=== PATIENT | female | born 1950 | race Caucasian/White ===

== ENCOUNTER 2020-11-24 00:32 | Emergency (ER) | payer MEDICARE, SELFPAY ==
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
[2020-11-24 00:44] VITALS: BP 169/87; PULSE 68; RESP 14; TEMP 36.1; O2SAT 98; BMI 24.1
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
[2020-11-24] MEDS: cephALEXin 500 MG CAPSULE PO (01:30)
[2020-11-24] MEDS: Furosemide 20 MG TABLET PO (01:30)
[2020-11-24 01:42] LABS: MANUAL DIFF FLAG NO
[2020-11-24 01:43] LABS: Basophils Absolute Auto 0.1 X10*3/uL (0.0-0.2); Basophils Percent Auto 1.1 % (0-2); Eosinophils Absolute Auto 0.5 X10*3/uL (0.0-0.4); Eosinophils Percent Auto 8.2 % (0-4); Hematocrit 35.7 % (37-47); Imm Gran Abs Auto 0.02 X10*3/uL (0.00-0.03); Imm Gran Pct Auto 0.4 % (0.0-0.4); Lymphocytes Absolute Auto 1.2 X10*3/uL (1.2-4.9); Lymphocytes Percent Auto 21.1 % (20-40); Mean Corpuscular HGB Conc 33.6 g/dl (31.0-35.0); Mean Corpuscular Hemoglobin 30.5 pg (27.0-33.0); Mean Corpuscular Volume 90.6 fL (80-98); Mean Platelet Volume 9.5 fL (9.4-12.3); Monocytes Absolute Auto 0.5 X10*3/uL (0.1-1.2); Monocytes Percent Auto 8.2 % (2-11); Neutrophils Absolute Auto 3.5 X10*3/uL (2.0-8.3); Platelet Count 270 X10*3/uL (160-400); Red Blood Count 3.94 X10*6/uL (4.20-5.50); Red Cell Distribution Width 11.8 % (11.0-16.0); White Blood Count 5.7 X10*3/uL (4.8-10.8)
[2020-11-24 02:02] LABS: Alanine Aminotransferase 11 U/L (0-31); Albumin Level 3.8 g/dL (3.5-5.0); Alkaline Phosphatase 87 U/L (39-117); Anion Gap 12 (12-20); Aspartate Amino Transferase 12 U/L (5-31); Bilirubin Direct 0.2 mg/dL (0.0-0.5); Bilirubin Total 0.5 mg/dL (0.0-1.0); Blood Urea Nitrogen 10 mg/dL (9-16); Calcium 8.9 mg/dL (8.4-10.2); Carbon Dioxide 26 mmol/L (22-29); Chloride 108 mmol/L (96-108); Estimated Glomerular Filt Rate > 60; Glucose Random 107 mg/dL (60-115); Sodium 142 mmol/L (135-145); Total Protein 6.1 g/dL (6.5-8.0)
== END 2020-11-24 02:21 | disposition home or self-care (01) ==
PROVIDERS: Emergency Provider Emergency Medicine; PCP Internal Medicine
DX: L03.116 Cellulitis of left lower limb (principal); R60.0 Localized edema; Z79.899 Other long term (current) drug therapy
CPT/HCPCS: 36415; 80048; 80076; 85025; 93970; 99283; 99284

== ENCOUNTER 2020-11-24 08:04 | Outpatient (REF) | payer BC, MEDICARE, SELFPAY ==
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
== END 2020-11-24 08:05 | disposition home or self-care (01) ==
LOC: HO.US 08:04
PROVIDERS: Visit Provider Emergency Medicine
DX: R60.0 Localized edema (principal)
CPT/HCPCS: 93970

== ENCOUNTER 2020-12-03 17:38 | Emergency (ER) | payer MEDICARE, SELFPAY ==
--- NOTE | ~2020-12-03 | XR_ITS ---
EXAMINATION: XR WRIST, LEFT CLINICAL INFORMATION: Status post cast removal COMPARISON: None available TECHNIQUE: PA, lateral, and oblique views of the left wrist. FINDINGS: Radial fracture fixation plate and screws appears intact. Fracture lucency remains visible with no definite osseous bridging. XR/XR wrist LT min 3V IMPRESSION: Hardware appears intact. No definite osseous bridging of the distal radius fracture.
[2020-12-03 18:08] VITALS: BP 121/47; PULSE 68; RESP 18; O2SAT 98; BMI 22.6
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
--- NOTE | 2020-12-03 20:52 | PC.NURSE ---
PT VOLAR SPLINT IN PLACE CHECKED BY MÓNICA GARCIA.
[2020-12-03] MEDS: Bacitracin Oint 14 GM TUBE 1 APPL TOPICAL (20:55)
== END 2020-12-03 20:52 | disposition home or self-care (01) ==
PROVIDERS: Emergency Provider Emergency Medicine; PCP Internal Medicine
DX: S62.102A Fracture of unspecified carpal bone, left wrist, initial encounter for closed fracture (principal); M25.532 Pain in left wrist; V43.52XA Car driver injured in collision with other type car in traffic accident, initial encounter; Y93.9 Activity, unspecified; Y92.410 Unspecified street and highway as the place of occurrence of the external cause; Y99.9 Unspecified external cause status; Z79.899 Other long term (current) drug therapy
CPT/HCPCS: 29125; 73110; 99283

== ENCOUNTER 2021-03-17 17:54 | Emergency (ER) | payer MEDICARE, SELFPAY ==
[2021-03-17 17:58] VITALS: BP 147/72; PULSE 73; RESP 16; TEMP 37.3; O2SAT 97; BMI 29.0
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
[2021-03-17 18:53] LABS: Appearance Urine CLEAR; Color Urine YELLOW; Glucose Urine UA NEG (NEG); Leukocyte Esterase Urine NEG (NEG); Nitrite Urine NEG (NEG); PH 5.5 (5.0-8.0); UACC Culture Trigger NO; Urine Blood TRACE (NEG); Urine Ketones NEG (NEG); Urine Protein NEG (NEG-TRACE)
[2021-03-17 19:03] LABS: COVID-19 Test Negative (Negative)
[2021-03-17 19:05] LABS: Amphetamine Screen Urine Not Detected (Not Detect); Barbiturates, Urine Not Detected (Not Detect); Benzodiazepines Screen Urine POSITIVE (Not Detect); Cannabinoid Screen Urine Not Detected (Not Detect); Cocaine Screen Urine Not Detected (Not Detect); Fentanyl, urine Not Detected (Not Detect); Opiate Screen Urine Not Detected (Not Detect); Phencyclidine Screen Urine Not Detected (Not Detect)
[2021-03-17 19:14] LABS: Hyaline Casts Urine 0-2 /LPF; Mucus Urine TRACE /LPF; Squamous Epithelial Cell Urine 1+ /LPF; WBC Urine 0-2 /HPF (0-4)
[2021-03-17 19:25] LABS: MANUAL DIFF FLAG NO
[2021-03-17 19:27] LABS: Basophils Absolute Auto 0.1 X10*3/uL (0.0-0.2); Basophils Percent Auto 0.7 % (0-2); Eosinophils Absolute Auto 0.2 X10*3/uL (0.0-0.4); Eosinophils Percent Auto 2.1 % (0-4); Hematocrit 42.5 % (37.0-47.0); Hemoglobin 14.5 g/dl (12.0-16.0); Imm Gran Abs Auto 0.02 X10*3/uL (0.00-0.03); Imm Gran Pct Auto 0.3 % (0.0-0.4); Lymphocytes Absolute Auto 1.8 X10*3/uL (1.2-4.9); Mean Corpuscular HGB Conc 34.1 g/dl (31.0-35.0); Mean Corpuscular Hemoglobin 29.9 pg (27.0-33.0); Mean Corpuscular Volume 87.6 fL (80.0-98.0); Mean Platelet Volume 9.6 fL (9.4-12.3); Monocytes Absolute Auto 0.5 X10*3/uL (0.1-1.2); Monocytes Percent Auto 7.2 % (2-11); Neutrophils Absolute Auto 4.5 x10*3/uL (2.0-8.3); Neutrophils Percent Auto 63.7 % (45-73); Platelet Count 314 X10*3/uL (160-400); Red Blood Count 4.85 X10*6/uL (4.20-5.50); Red Cell Distribution Width 12.2 % (11.0-16.0)
[2021-03-17 19:42] LABS: Ethanol < 10 mg/dL
[2021-03-17 19:44] LABS: Alanine Aminotransferase 13 U/L (0-31); Albumin Level 4.5 g/dL (3.5-5.0); Alkaline Phosphatase 72 U/L (39-117); Anion Gap 14 (12-20); Aspartate Amino Transferase 19 U/L (5-31); Bilirubin Total 0.9 mg/dL (0.0-1.0); Blood Urea Nitrogen 16 mg/dL (9-16); Calcium 10.1 mg/dL (8.4-10.2); Carbon Dioxide 26 mmol/L (22-29); Chloride 104 mmol/L (96-108); Creatinine Clr Calc Pharmacy 44.4; Estimated Glomerular Filt Rate 42; Glucose Random 108 mg/dL (60-115); Potassium 3.8 mmol/L (3.3-5.1); Sodium 140 mmol/L (135-145); Total Protein 7.8 g/dL (6.5-8.0)
[2021-03-17] MEDS: Donepezil HCl 5 MG TABLET PO (21:58)
[2021-03-17] MEDS: diazePAM 5 MG TABLET PO (21:58)
[2021-03-18] MEDS: Levothyroxine Sodium 88 MCG TABLET PO (04:54)
--- NOTE | 2021-03-18 06:37 | PC.NURSE ---
Patient slept well, patient exhibit short term memory impairment, thought process tangential, alert and oriented x 4, patient presents strong dislike toward her daughter Tressa, medication compliant, behavior non-concerning this time, VSS, patient was assessed by care team pending disposition possible case management recommendation, will continue to monitor.
[2021-03-18] MEDS: PARoxetine HCL 10 MG TABLET PO (09:27)
[2021-03-18] MEDS: lisinopriL 2.5 MG TABLET PO (09:27)
[2021-03-18 09:34] VITALS: BP 132/70; PULSE 66; RESP 16; TEMP 37.1; O2SAT 98
--- NOTE | 2021-03-18 12:46 | PC.NURSE ---
pt continually asking this rn about going home, redirectable, calm and cooperative. pt educated about waiting for report on bhn eval and consult w ed provider about plan of care. pt otherwise alert and oriented, conversing and engaging w staff and patients appropriately.
--- NOTE | 2021-03-18 12:59 | MHC.CM.PN ---
Addendum entered by Rema Arriaga 03/18/21 16:26: Pt has formally been cleared by crisis and an order was placed for CM consult. Message left with pt's dtr, Tressa on number listed for call back to discuss d/c plan. Pt does not have a medical need for admission or a skill for STR placement. Pt's payor will not pay for LTC or assisted living. Per review of notes, pt's family has already begun the process of placement and decision making through formal psych evals and legal avenues. Crisis did not deem the pt a risk. Pt should return to home with family support and/or privately hired in home help until they can complete the processes they have already initiated. If this is not feasible, pt can private pay at a facility. CM to wait for daughter's return phone call to discuss pt's options. Original Note: Brief overview of case relayed to CM by Crisis: LTC/STR placement criteria and barriers dicussed including payor considerations, HCP activation etc. Will await formal CM consult after psych clearance before meeting with pt or family.
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
[2021-03-18 15:35] VITALS: BP 103/53; PULSE 64; TEMP 37; O2SAT 99
--- NOTE | 2021-03-18 18:40 | PC.NURSE ---
report taken from alejo mccormack. Client in dayroom interacting with peers and watching tv. pt appears in nad. will continue to monitor
[2021-03-18] MEDS: Donepezil HCl 5 MG TABLET PO (20:36)
[2021-03-18] MEDS: diazePAM 5 MG TABLET PO (20:36)
[2021-03-19 02:07] VITALS: BP 112/66; PULSE 68; RESP 16; TEMP 36.6; O2SAT 97
[2021-03-19] MEDS: Levothyroxine Sodium 88 MCG TABLET PO (05:56)
--- NOTE | 2021-03-19 06:07 | PC.NURSE ---
Patient slept through the night, no distress observed/reported, medication compliant, behavior confused and appropriate, disposition is case management, bed search, VSS, will continue to monitor.
--- NOTE | 2021-03-19 07:40 | PC.NURSE ---
Calm, cooperative, eating breakfast in common area. Chatting with staff and patients. Stead on feet. Skin PWD.
[2021-03-19] MEDS: lisinopriL 2.5 MG TABLET PO (09:19)
[2021-03-19] MEDS: PARoxetine HCL 10 MG TABLET PO (10:11)
--- NOTE | 2021-03-19 10:40 | PC.NURSE ---
Daughter, Melissa from [place], on phone, states that patient has made mult threats to other daughter on phone and also talked about walking into traffic . Asking that Case Management call Tressa today with update. Pt speaking with daughter Melissa on phone,.
--- NOTE | 2021-03-19 13:29 | PC.NURSE ---
Carrol holliday in ED to touch base about patient's plan. Will call daughters to discuss plan of care. Melissa, daughter in [place] tel is [phone]
[2021-03-19 14:00] VITALS: BP 122/60; PULSE 69; TEMP 36.9; O2SAT 98
--- NOTE | 2021-03-19 15:13 | PC.NURSE ---
being seen by Case Management at this time.
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
[2021-03-19] MEDS: Donepezil HCl 5 MG TABLET PO (20:52)
[2021-03-20 01:56] VITALS: BP 144/68; PULSE 55; RESP 16; TEMP 36.3; O2SAT 99
[2021-03-20] MEDS: Levothyroxine Sodium 88 MCG TABLET PO (05:05)
--- NOTE | 2021-03-20 05:05 | PC.NURSE ---
Patient slept well, no distress observed/reported, behavior confused but non concerning at this time, medication compliant, psych consult ordered/[facility] made aware, case management pending capacity evaluation, VSS, will continue to monitor.
[2021-03-20 06:51] VITALS: BMI 22.6
--- NOTE | 2021-03-20 07:16 | PC.NURSE ---
patient awake at beginning of shift meandering around unit with similar age patient appears in no distress.
[2021-03-20 07:57] VITALS: BP 109/57; PULSE 60; RESP 13; TEMP 36.4; O2SAT 99
[2021-03-20] MEDS: PARoxetine HCL 10 MG TABLET PO (09:55)
[2021-03-20] MEDS: lisinopriL 2.5 MG TABLET PO (09:55)
--- NOTE | 2021-03-20 10:19 | MHC.CM.ED ---
Addendum entered by Jil Ghtora 03/20/21 13:40: Dr Holloway will be seeing patient today. Original Note: Patient remains in ER. Received notification from Mitzi of Care Team that patient did not need inpatient psych and was a case management consult. Originally psych consult was going to be ordered was Care team decided against it. Per Mitzi, patient's daughter/HCP, Tressa aware patient will not be admitted to psych. T/W spoke with patient's daughter/HCP, Tressa, via telephone at [phone]. Tressa stated she was not aware patient would not be admitted to psych. Tressa inquired about reasoning why. T/W explained patient was continuing to deny SI/HI and visual auditory hallucinations. Tressa does not feel patient can safely go home. She is in the process of filing emergency guardianship with the help of a drapery examiner for her mom. She is not sure when the court date will be but per the multi purpose machine operator, can take about 2 weeks. T/W explained that LTC or assisted living would have to be privately paid. Tressa verbalized understanding and verified patient has a savings account available to privately pay for care. T/W also explained psych consult was ordered to determine in patient has the capacity to make her own medical decisions. Tressa upset that consult hasn't been done yet when she was told Saturday and Saturday that psych consult would be ordered. T/W verified psych consult for capacity was ordered and called [facility] to verify they received the order. Tressa aware. Continue to monitor for d/c needs.
--- NOTE | 2021-03-20 14:28 | PC.NURSE ---
DR. Holloway in to speak with patient at this time.
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
--- NOTE | 2021-03-20 15:43 | MHC.CM.ED ---
Patient seen by Dr Holloway. Patient found not to have the capacity to make her own decisions. HCP is invoked. T/W spoke with patient's daughter/HCP, Tressa, via telephone at [phone]. Tressa is hoping to have patient placed in Assisted Living at [facility] or [facility]. Tressa agreeable to T/W reaching out to these facilities. At [facility], left message for Mercedes to return telephone call. At [facility], spoke with Sen, who will call Tressa to discuss patient. Tressa is aware that patient may need to go to a [facility] facility under private pay, if there is not an assisted living room available. Continue to monitor for d/c needs.
[2021-03-20] MEDS: Donepezil HCl 5 MG TABLET PO (21:47)
[2021-03-20] MEDS: diazePAM 5 MG TABLET PO (21:47)
[2021-03-21 03:00] VITALS: BP 169/72; PULSE 58; RESP 16; TEMP 36.9; O2SAT 100
--- NOTE | 2021-03-21 05:38 | PC.NURSE ---
Patient slept through the night, no distress observed/reported, behavior appropriate and confused, medication compliant, Case Management and family coordinating placement. HCP invoked, VS at baseline, will continue to monitor.
[2021-03-21] MEDS: Levothyroxine Sodium 88 MCG TABLET PO (06:11)
--- NOTE | 2021-03-21 07:21 | PC.NURSE ---
patient appears to remain asleep at present respirations are even and unlabored patient appears in no distress
[2021-03-21 07:50] VITALS: BP 138/69; PULSE 64; RESP 13; TEMP 36.4; O2SAT 98
--- NOTE | 2021-03-21 08:13 | PC.NURSE ---
client stands at the front of the nurses station repeatedly asking about discharge, i have informed client i do not have information about her discharge
--- NOTE | 2021-03-21 08:25 | PC.NURSE ---
client continues to stand at front of nurses station and repeats she wants to go home. in speaking to security she infers she may not go home im not going to eat or drink and i wont take meds t/w told her i didnt think it would be a fantastic idea, patient reiterates she wants to go home.
--- NOTE | 2021-03-21 09:13 | MHC.CM.ED ---
Addendum entered by Jil Ghotra 03/21/21 13:02: SABRINA Cuevas requesting physician clearance form be completed. Can be completed by a mid-level. Form completed and signed by Silvia SALES. Per Faith, patient's prescriptions will have to be scheduled, not PRN. Faith is still waiting to hear from the buioding and patient's daughter. Anticipate patient will be able to d/c to [facility] on 03/22 as long as all necessary forms (building, consent of care, etc) are completed. Addendum entered by Jil Ghotra 03/21/21 11:05: SABRINA Cuevas will speak with building and daughter. Original Note: Patient remains in ER. On 03/20, HCP invoked. SABRINA Cuevas from [facility] on site for visit with patient. Continue to monitor for d/c needs.
[2021-03-21] MEDS: diazePAM 5 MG TABLET PO ×2 (12:44→21:25)
[2021-03-21] MEDS: Donepezil HCl 5 MG TABLET PO (21:25)
--- NOTE | 2021-03-22 06:22 | PC.NURSE ---
Patient slept through the night, no distress observed/reported, behavior appropriate and confusion at baseline, medication compliant, Case Management and family coordinating placement. HCP invoked, VS at baseline, will continue to monitor.
[2021-03-22 06:37] VITALS: BP 141/79; PULSE 62; RESP 17; TEMP 36.7; O2SAT 99
[2021-03-22] MEDS: Levothyroxine Sodium 88 MCG TABLET PO (06:38)
--- NOTE | 2021-03-22 07:20 | PC.NURSE ---
patient was awake upon t/w's arrival to unit freq making comments regarding unit temperature (its 18 degrees outside) asking for coffee and sweeteners otherwise appears in no distress
[2021-03-22] MEDS: SUMAtriptan succinate 25 MG TABLET PO (09:25)
[2021-03-22] MEDS: PARoxetine HCL 10 MG TABLET PO (09:59)
[2021-03-22] MEDS: lisinopriL 2.5 MG TABLET PO (09:59)
--- NOTE | 2021-03-22 12:13 | MHC.CM.ED ---
Patient remains in ER. Received telephone call from patient's daughter/HCP, Tressa, requesting additional psych consult for medication recommendations to help with anxiety. Dominic SALES aware. Continue to monitor for d/c needs.
--- NOTE | 2021-03-22 16:21 | P.CNPS_ITS ---
History of Present Illness Date of Service: 03/22 Chief Complaint: crisis, hi and paranoia sec 12 Reason for Consult: med recs HPI Narrative: see previous psychiatry consult. interval update provided by carrie, indicates no substantial change in Sx. Past Psychiatric History: anxiety, takes paxil and valium. denies other. Diagnostics Vital Signs (24Hr): Vital Signs - 24 hr 03/22/21 06:37 Temperature 98.0 F Pulse Rate 62 Respiratory Rate 17 Blood Pressure 141/79 H Pulse Oximetry 99 BMI result Verdana 4 Body Mass Index Verdana 4 22.6 Verdana 4 Verdana 4 Labs Results: 03/17/21 19:18 03/17/21 19:18 Medications Medications Current Medications Diazepam (Diazepam 5 Mg Tablet) 5 mg PO BID [facility] Last Admin: 03/22/21 13:35 Dose: Not Given Documented by: Donepezil HCl (Donepezil Hcl 5 Mg Tablet) 5 mg PO BEDTIME [facility] Last Admin: 03/21/21 21:25 Dose: 5 mg Documented by: Haloperidol (Haloperidol 1 Mg Tablet) 2 mg PO BEDTIME [facility] Levothyroxine Sodium (Levothyroxine Sodium 88 Mcg Tablet) 88 mcg PO DAILY@0600 [facility] Last Admin: 03/22/21 06:38 Dose: 88 mcg Documented by: Lisinopril (Lisinopril 2.5 Mg Tablet) 2.5 mg PO DAILY [facility]; Protocol Last Admin: 03/22/21 09:59 Dose: 2.5 mg Documented by: Paroxetine HCl (Paroxetine Hcl 10 Mg Tablet) 10 mg PO DAILY [facility] Last Admin: 03/22/21 09:59 Dose: 10 mg Documented by: Allergies Allergies Allergy/AdvReac Type Severity Reaction Status Date / Time Sulfa (Sulfonamide Allergy Unknown Unknown Verified 11/24/20 00:44 Antibiotics) Assessment & Plan Assessment & Plan (1) Alzheimer disease: Status: Acute Code(s): G30.9 - Alzheimer's disease, unspecified; F02.80 - Dementia in other diseases classified elsewhere without behavioral disturbance (2) Paranoia: Status: Acute Code(s): F22 - Delusional disorders Assessment and Plan: continue paxil and valium for anxiety. add haldol 2 mg at HS to start for paranoia/agitation associated with paranoid delusions. also 0.5 mg haldol available Q6H PRN agitation. Plan as above. pending placement in [facility]. I spent minutes with the patient and/or on the patient floor today, greater than?50% of which was spent counseling/coordinating care.
[2021-03-22] MEDS: Ibuprofen 600 MG TABLET PO (17:19)
[2021-03-22 19:28] VITALS: BP 116/63; PULSE 53; RESP 16; TEMP 37.1; O2SAT 98
[2021-03-22] MEDS: Donepezil HCl 5 MG TABLET PO (21:39)
[2021-03-22] MEDS: diazePAM 5 MG TABLET PO (21:39)
[2021-03-22] MEDS: HaloperidoL 1 MG TABLET 2 MG PO (21:40)
[2021-03-22 23:24] VITALS: BP 140/78; PULSE 75; RESP 16; TEMP 36.4; O2SAT 96
[2021-03-23 02:26] VITALS: BP 140/78; PULSE 117; RESP 16; TEMP 36.4; O2SAT 96
[2021-03-23] MEDS: Levothyroxine Sodium 88 MCG TABLET PO ×2 (06:46→09:51)
--- NOTE | 2021-03-23 06:55 | PC.NURSE ---
Patient slept through the night, no distress observed/reported, behavior appropriate and confusion at baseline, medication compliant, Positive effect from Haldol 2 mg introduced yesterday, Case Management and family coordinating placement. HCP invoked, VS at baseline, will continue to monitor
[2021-03-23] MEDS: HaloperidoL 0.5 MG TABLET PO ×3 (07:43→13:54)
[2021-03-23] MEDS: diazePAM 5 MG TABLET PO ×2 (09:50→21:15)
[2021-03-23] MEDS: PARoxetine HCL 10 MG TABLET PO (09:50)
[2021-03-23] MEDS: lisinopriL 2.5 MG TABLET PO (09:50)
--- NOTE | 2021-03-23 13:44 | MHC.CM.ED ---
Spoke with Matt at [facility]. They have been waiting for the daughter to call to sign paperwork. Bette/Earnest spoke with Tressa via telephone at [phone] with Reema Ward. Explaiend to Tressa that patient does not qualify for inpatient psych. Tressa verbalized understanding. Tressa is waiting for [facility] to contact her. Bette/Earnest spoke with Faith at [facility]. She will reach out to Tressa. Facility will need all of the patient's medications in the building before they accept her. They will also need the consent forms signed. Tressa will also need to connect with [facility] to get patient's prescriptions transferred. They can be reached via telephone at [phone]. Continue to monitor for d/c needs.
--- NOTE | 2021-03-23 14:18 | PC.NURSE ---
PT HAS PERIODS OF AGITATION STATES SHE IS GOING TO CALL ATTY WALK OUT, HAS MADE SEVERAL CALLS TO HER DAUGHTERS IN THE AM, DAUGHTER CALLED ASKING IF WE COULD LIMIT PTS PHONE ACTIVITY. PT IS IN THE SAME STATE SHE WAS IN WITH AGITATION THIS AM STATING SHE WANTS TO LEAVE AMA, WANTS TO KNOW WHY SHE IS HERE SHE'S DONE NOTHING WRONG. PT HAS BEEN EDUCATED SEVERAL TIMES ON WHY SHE IS HERE. PT HAS ASKED TO SPEAK WITH VICE PRESIDENT CORPORATE COMMUNICATIONS (DIANA TIM)
[2021-03-23 17:26] VITALS: BP 130/65; PULSE 58; TEMP 37; O2SAT 98
[2021-03-23] MEDS: Donepezil HCl 5 MG TABLET PO (21:15)
[2021-03-23] MEDS: HaloperidoL 1 MG TABLET 2 MG PO (21:15)
[2021-03-24 01:47] VITALS: BP 143/75; PULSE 77; RESP 20; TEMP 36.6; O2SAT 99
[2021-03-24] MEDS: Levothyroxine Sodium 88 MCG TABLET PO ×2 (05:39)
--- NOTE | 2021-03-24 05:40 | PC.NURSE ---
Patient slept through the night, no distress observed/reported, mood pleasant, medication compliant, VSS, behavior pleasant, patient will be discharged today to [facility], case management and daughter Tressa who is patient's healthcare proxy coordinating d/c, VSS, will continue to monitor.
--- NOTE | 2021-03-24 07:10 | PC.NURSE ---
patient awake upon t/w's Arrival to unit, asking for food items and asking about details of todays planned dc. Pleasant and overall approriate bx at this time.
--- NOTE | 2021-03-24 08:18 | PC.NURSE ---
patient ambulating ad rory stating she will sabotage admission today i should just run around naked so they'll think im demetrazy asking for sons phone number and phone for receiving facility.
[2021-03-24] MEDS: diazePAM 5 MG TABLET PO ×2 (09:12→21:42)
--- NOTE | 2021-03-24 09:50 | MHC.CM.ED ---
Patient remains in ER. Spoke with Faith at [facility]. They anticipate patient will transfer to their facility on Saturday, 03/28 as long as they have the necessary paperwork completed for the patient. The physician clearance form that was completed by the ER PA needs to be completed by the patient's PCP. Tressa needs to get patient's medications switched to [facility] bubble packs. And [facility] needs a copy of patient's power of associate attorney. T/W received a copy of the POA from Tressa via email this morning. This was forwarded to Faith at [facility]. T/W emailed Tressa with the above information. Also included a current list of patient's medications. T/W also faxed a copy of physican clearance form to PCP's office with current clinical information and medication list. Tressa is aware that she will need to follow up with the PCP's office for this. Continue to monitor for d/c needs.
[2021-03-24] MEDS: HaloperidoL 0.5 MG TABLET PO (14:57)
[2021-03-24 18:26] VITALS: BP 149/70; PULSE 60; TEMP 36.8; O2SAT 99
[2021-03-24] MEDS: HaloperidoL 1 MG TABLET 2.5 MG PO (21:41)
[2021-03-24] MEDS: Donepezil HCl 5 MG TABLET PO (21:57)
--- NOTE | 2021-03-25 06:14 | PC.NURSE ---
Patient slept through the night, no distress observed/reported, behavior pleasant confusion at baseline, tentative day to d/c to [facility] is on 03/28/21, daughter Tressa and case management coordinating placement, medication compliant, will continue to monitor.
[2021-03-25 06:42] VITALS: BP 129/60; PULSE 54; RESP 16; TEMP 36.5; O2SAT 95
[2021-03-25] MEDS: Levothyroxine Sodium 88 MCG TABLET PO (06:53)
--- NOTE | 2021-03-25 07:03 | PC.NURSE ---
patient appears to remain asleep respirations are even and unlabored patioent appears in no distress
[2021-03-25 09:11] VITALS: RESP 18
[2021-03-25 09:39] VITALS: BP 143/63; PULSE 56; TEMP 35.3; O2SAT 97
[2021-03-25] MEDS: lisinopriL 2.5 MG TABLET PO (09:39)
[2021-03-25] MEDS: diazePAM 5 MG TABLET PO ×2 (09:39→20:19)
[2021-03-25] MEDS: PARoxetine HCL 10 MG TABLET PO (09:40)
[2021-03-25] MEDS: Donepezil HCl 5 MG TABLET PO (20:19)
[2021-03-25] MEDS: HaloperidoL 1 MG TABLET 2.5 MG PO (20:20)
--- NOTE | 2021-03-25 20:42 | PC.NURSE ---
Patient took all hs medication without difficulty aware of plan to go to [facility] on saturday no s/s of discomfort will continue to monitor.
[2021-03-25 23:51] VITALS: BP 132/60; PULSE 59; RESP 18; TEMP 36.8; O2SAT 96
[2021-03-26] MEDS: Levothyroxine Sodium 88 MCG TABLET PO (06:10)
--- NOTE | 2021-03-26 07:40 | PC.NURSE ---
patient appears to remain asleep respirations are even and unlabored patient appears in no distress
[2021-03-26 09:49] VITALS: BP 136/61; PULSE 63; TEMP 35.3; O2SAT 97
--- NOTE | 2021-03-26 10:36 | PC.NURSE ---
patient expresses dont want to go to the [facility], i want to go home, my memory is fine declined medications.
--- NOTE | 2021-03-26 14:14 | PC.NURSE ---
patient reports wants to go home , patient asking to speak with case management about saturday discharge home.
--- NOTE | 2021-03-26 14:56 | MHC.CARE ---
Security came and obtained Pt's purse and [place] and provided them to the Power of Pole Peeling Machine Operator Helper,
[2021-03-26 20:02] VITALS: BP 138/58; PULSE 65; RESP 18; TEMP 37; O2SAT 96
[2021-03-26] MEDS: Donepezil HCl 5 MG TABLET PO (20:38)
[2021-03-26] MEDS: HaloperidoL 1 MG TABLET 2.5 MG PO (20:39)
[2021-03-26 23:47] VITALS: BP 152/73; PULSE 69; RESP 17; TEMP 36.7; O2SAT 95
[2021-03-27] MEDS: Levothyroxine Sodium 88 MCG TABLET PO (06:40)
--- NOTE | 2021-03-27 06:54 | PC.NURSE ---
Patient slept through the night, no distress observed/reported, behavior non concerning, medication compliant, Pending admission to [facility], will continue to monitor.
[2021-03-27 07:34] VITALS: BP 138/71; PULSE 63; RESP 16; O2SAT 100
--- NOTE | 2021-03-27 07:48 | PC.NURSE ---
Pt received from shift leader: Pt AOX2-3 with intermittent confusion. Heart sounds normal and lungs clear. Pt abd soft and non-tender. Pending transport to [facility].
[2021-03-27 09:28] VITALS: BP 156/77; PULSE 56; RESP 17; O2SAT 100
[2021-03-27] MEDS: lisinopriL 2.5 MG TABLET PO (09:30)
--- NOTE | 2021-03-27 12:23 | MHC.CM.ED ---
Patient remains in ER. Received telephone call from Faith at [facility]. Patient can leave on 03/28 at 2pm. [facility] booked. [facility] with chart. Updated medication list faxed to Faith at [facility]. Patient's prescriptions will have to transferred to [facility]. List of current medication provided to Dr Jacobo so those prescriptions can be sent today. Continue to monitor for d/c needs.
[2021-03-27 19:07] VITALS: BP 197/67; PULSE 67; RESP 18; TEMP 37.1; O2SAT 99
[2021-03-27] MEDS: PARoxetine HCL 10 MG TABLET PO (19:07)
[2021-03-27] MEDS: HaloperidoL 1 MG TABLET 2.5 MG PO (19:59)
[2021-03-27] MEDS: Donepezil HCl 5 MG TABLET PO (19:59)
[2021-03-27 23:24] VITALS: BP 139/70; PULSE 67; RESP 18; TEMP 36.4; O2SAT 96
[2021-03-28] MEDS: HaloperidoL 0.5 MG TABLET PO ×2 (00:25→11:31)
--- NOTE | 2021-03-28 05:53 | PC.NURSE ---
Patient slept through the night, no distress observed/reported, behavior non concerning, medication compliant, D/C today at 2 pm TUSHAR Chowdary, will continue to monitor.
[2021-03-28] MEDS: Levothyroxine Sodium 88 MCG TABLET PO (06:25)
--- NOTE | 2021-03-28 07:24 | PC.NURSE ---
patient appears to be asleep at present, respirations are even and unlabored, patient appears in no distress.
[2021-03-28 08:05] VITALS: BP 138/64; PULSE 62; RESP 12; TEMP 36.6; O2SAT 98
--- NOTE | 2021-03-28 08:59 | MHC.CM.ED ---
Patient will be transferring to [facility] today at 2pm. [facility] booked. Attempted to notify patient. Patient currently sleeping. Left voicemail for patient's daughter/HCP, via telephone at [phone] with discharge information. Chloe PERRY and MÓNICA Alfaro aware. Continue to monitor for d/c needs.
--- NOTE | 2021-03-28 09:19 | PC.NURSE ---
t/w observed clients valium had been dc'ed, relayed information to pharmacy to assure that this change was not an error.
[2021-03-28] MEDS: PARoxetine HCL 10 MG TABLET PO (11:31)
[2021-03-28] MEDS: lisinopriL 2.5 MG TABLET PO (11:31)
--- NOTE | 2021-03-28 11:34 | PC.NURSE ---
@1122 [facility] CALLS TO SAY THEY HAVE AN A TRUCK FOR A NOON TILE TRIMMER
== END 2021-03-28 14:32 ==
PROVIDERS: Physician Assistant; Emergency Provider Emergency Medicine Emergency Medical Services; PCP Internal Medicine
DX: F32.A Depression, unspecified (principal); F41.9 Anxiety disorder, unspecified; F22 Delusional disorders; R45.850 Homicidal ideations; Z20.822 Contact with and (suspected) exposure to COVID-19; G30.9 Alzheimer's disease, unspecified; F02.80 Dementia in other diseases classified elsewhere, unspecified severity, without behavioral disturbance, psychotic disturbance, mood disturbance, and anxiety; Z79.899 Other long term (current) drug therapy
CPT/HCPCS: 80053; 80307; 81001; 82077; 85025; 87635; 99285

== ENCOUNTER 2021-05-08 17:25 | Emergency (ER) | payer MEDICARE, SELFPAY ==
--- NOTE | 2021-05-08 17:43 | ED_ITS ---
HPI - General Adult General Chief complaint: General Medical Stated complaint: INC WEAK,DIFF AMB,NOT EATING PER ASSIST [facility]ON STAFF Time Seen by Provider: 05/08/21 17:41 Source: EMS Mode of arrival: EMS History of Present Illness HPI narrative: Patient with history of dementia came from assisted living place for not eating for last few days patient has been more weak and difficulty in ambulation no fever no shortness of breath no recent fall patient denies any complaints Related Data Home Medications Medication Instructions Recorded Confirmed levothyroxine 88 mcg tablet 1 tab PO DAILY 03/17/21 05/09/21 paroxetine HCl 10 mg tablet 1 tab PO DAILY 03/17/21 05/08/21 acetaminophen 500 mg tablet 1 tab PO Q6H PRN 05/09/21 05/09/21 Previous Rx's Medication Instructions Recorded donepezil 5 mg tablet (Aricept) 5 mg PO BEDTIME #30 tab 03/27/21 haloperidol 0.5 mg tablet 0.5 mg PO BID #60 tab 03/27/21 haloperidol 5 mg tablet 2.5 mg PO BEDTIME 30 Days #15 tab 03/27/21 lisinopril 2.5 mg tablet 2.5 mg PO DAILY #30 tab 03/27/21 Allergies Allergy/AdvReac Type Severity Reaction Status Date / Time Sulfa (Sulfonamide Allergy Unknown Unknown Verified 11/24/20 00:44 Antibiotics) Review of Systems Review of Systems: Yes all other systems are reviewed and are negative [facility] Social History Social History Advance Directives: Yes Advance Directives on File: Yes Advance Directives Date on File: 03/20/21 Healthcare Proxy: No (Invoked) Guardian: Yes Physical Exam ED Vital Signs: Vital Signs - 24 hr 05/08/21 17:51 05/08/21 20:28 05/09/21 00:00 Temperature 98.3 F 98.7 F 98.6 F Pulse Rate 76 69 Respiratory Rate 18 16 16 Blood Pressure 143/91 H 130/70 155/79 H Pulse Oximetry 97 97 BMI result Body Mass Index 24.9 Appearance: Alert. Oriented X3. No acute distress. Eyes: PERRLA, No Nystagmus ENT: Pharynx normal. Oral Mucosa moist Neck: Normal inspection. Neck supple. CVS: Normal heart rate and rhythm. Pulses normal. Respiratory: No respiratory distress. Equal air entry bilateral, no wheezing/rales/rhonchi Abdomen: Soft and nontender. Bowel sounds are present, no mass palpable, no CVA tenderness Skin: Skin warm and dry. Normal skin color. Normal skin turgor. Extremities: No lower extremity edema. No calf tenderness Neuro: Oriented X 3. No motor deficit. No sensory deficit.No cerebellar signs , cranial nerves II-XII intact Medical Decision Making MDM Narrative Medical decision making narrative: Patient with dementia with anxiety not eating or drinking for last few days not able to take care of herself medically cleared spoke to patient's daughter Melissa at [phone] says that staff told her that patient needs medications adjustment. Care team was consulted, plan to have a discussion in the morning with family Lab Data Lab results reviewed: Yes I reviewed the patient's lab results. Result diagrams: 05/08/21 18:38 05/08/21 18:37 Labs: Lab Results 05/08/21 05/08/21 05/08/21 Range/Units 18:37 18:38 20:23 WBC 6.7 (4.8-10.8) X10*3/uL RBC 5.20 (4.20-5.50) X10*6/uL Hgb 15.5 (12.0-16.0) g/dl Hct 45.9 (37.0-47.0) % MCV 88.3 (80.0-98.0) fL MCH 29.8 (27.0-33.0) pg MCHC 33.8 (31.0-35.0) g/dl RDW 11.7 (11.0-16.0) % Plt Count 327 (160-400) X10*3/uL MPV 10.6 (9.4-12.3) fL Immature Gran % (Auto) 0.4 (0.0-0.4) % Neut % (Auto) 66.4 (45-73) % Lymph % (Auto) 22.5 (20-40) % [place] % (Auto) 8.2 (2-11) % Eos % (Auto) 2.1 (0-4) % Baso % (Auto) 0.4 (0-2) % Lymph # (Auto) 1.5 (1.2-4.9) X10*3/uL [place] # (Auto) 0.6 (0.1-1.2) X10*3/uL Eos # (Auto) 0.1 (0.0-0.4) X10*3/uL Baso # (Auto) 0.0 (0.0-0.2) X10*3/uL Abs Immat Gran (auto) 0.03 (0.00-0.03) X10*3/uL Absolute Neuts (auto) 4.4 (2.0-8.3) x10*3/uL Absolute Nucleated RBC 0.000 (0.0-0.012) X10*3/uL Nucleated RBC % (auto) 0.0 (0.0-0.2) /100WBC Sodium 137 (135-145) mmol/L Potassium 4.3 (3.3-5.1) mmol/L Chloride 97 (96-108) mmol/L Carbon Dioxide 28 (22-29) mmol/L Anion Gap 16 (12-20) BUN 16 (9-16) mg/dL Creatinine 0.90 (0.5-1.4) mg/dL Estim Creat Clear Calc 52.3 Estimated GFR > 60 Random Glucose 132 H (60-115) mg/dL Calcium 9.7 (8.4-10.2) mg/dL Total Bilirubin 0.8 (0.0-1.0) mg/dL AST 31 D (5-31) U/L ALT 23 (0-31) U/L Alkaline Phosphatase 39 D (39-117) U/L Total Protein 6.9 (6.5-8.0) g/dL Albumin 4.0 (3.5-5.0) g/dL Urine Color Urine Appearance Urine pH (5.0-8.0) Ur Specific [place] (1.005-1.025) Urine Protein (NEG-TRACE) MG/DL Urine Glucose (UA) (NEG) MG/DL Urine Ketones (NEG) MG/DL Urine Blood (NEG) Urine Nitrite (NEG) Ur Leukocyte Esterase (NEG) Urine RBC (0) /HPF Urine WBC (0-4) /HPF Ur Squamous Epith Cells /LPF Talc Crystals /LPF Urine Bacteria /LPF Urine Mucus /LPF COVID-19 ([facility]) Negative (Negative) COVID-19 Clin Com See Note 05/08/21 Range/Units 20:23 WBC (4.8-10.8) X10*3/uL RBC (4.20-5.50) X10*6/uL Hgb (12.0-16.0) g/dl Hct (37.0-47.0) % MCV (80.0-98.0) fL MCH (27.0-33.0) pg MCHC (31.0-35.0) g/dl RDW (11.0-16.0) % Plt Count (160-400) X10*3/uL MPV (9.4-12.3) fL Immature Gran % (Auto) (0.0-0.4) % Neut % (Auto) (45-73) % Lymph % (Auto) (20-40) % [place] % (Auto) (2-11) % Eos % (Auto) (0-4) % Baso % (Auto) (0-2) % Lymph # (Auto) (1.2-4.9) X10*3/uL [place] # (Auto) (0.1-1.2) X10*3/uL Eos # (Auto) (0.0-0.4) X10*3/uL Baso # (Auto) (0.0-0.2) X10*3/uL Abs Immat Gran (auto) (0.00-0.03) X10*3/uL Absolute Neuts (auto) (2.0-8.3) x10*3/uL Absolute Nucleated RBC (0.0-0.012) X10*3/uL Nucleated RBC % (auto) (0.0-0.2) /100WBC Sodium (135-145) mmol/L Potassium (3.3-5.1) mmol/L Chloride (96-108) mmol/L Carbon Dioxide (22-29) mmol/L Anion Gap (12-20) BUN (9-16) mg/dL Creatinine (0.5-1.4) mg/dL Estim Creat Clear Calc Estimated GFR Random Glucose (60-115) mg/dL Calcium (8.4-10.2) mg/dL Total Bilirubin (0.0-1.0) mg/dL AST (5-31) U/L ALT (0-31) U/L Alkaline Phosphatase (39-117) U/L Total Protein (6.5-8.0) g/dL Albumin (3.5-5.0) g/dL Urine Color YELLOW Urine Appearance CLEAR Urine pH 6.0 (5.0-8.0) Ur Specific [place] 1.025 (1.005-1.025) Urine Protein TRACE (NEG-TRACE) MG/DL Urine Glucose (UA) NEG (NEG) MG/DL Urine Ketones 15 (NEG) MG/DL Urine Blood NEG (NEG) Urine Nitrite NEG (NEG) Ur Leukocyte Esterase 1+ H (NEG) Urine RBC 0 (0) /HPF Urine WBC 1-4 (0-4) /HPF Ur Squamous Epith Cells 1+ /LPF Talc Crystals TRACE /LPF Urine Bacteria 1+ /LPF Urine Mucus 1+ /LPF COVID-19 ([facility]) (Negative) COVID-19 Clin Com Discharge Plan Discharge Clinical Impression: Dementia, Anxiety, Adult failure to thrive Prescriptions: No Action paroxetine HCl 10 mg tablet 1 tab PO DAILY 0RF levothyroxine 88 mcg tablet 1 tab PO DAILY 0RF donepezil [Aricept] 5 mg tablet 5 mg PO BEDTIME Qty: 30 0RF haloperidol 0.5 mg tablet 0.5 mg PO BID Qty: 60 0RF haloperidol 5 mg tablet 2.5 mg PO BEDTIME 30 Days Qty: 15 0RF lisinopril 2.5 mg tablet 2.5 mg PO DAILY Qty: 30 0RF acetaminophen 500 mg tablet 1 tab PO Q6H PRN (Reason: Pain) 0RF
[2021-05-08 17:51] VITALS: BP 143/91; PULSE 76; RESP 18; TEMP 36.8; O2SAT 97; BMI 24.9
[2021-05-08] MEDS: 0.9 % Sodium Chloride 1,000 ML 999 ML IV (18:43)
[2021-05-08 18:46] LABS: MANUAL DIFF FLAG NO
[2021-05-08 19:06] LABS: Alanine Aminotransferase 23 U/L (0-31); Alkaline Phosphatase 39 U/L (39-117); Anion Gap 16 (12-20); Aspartate Amino Transferase 31 U/L (5-31); Bilirubin Total 0.8 mg/dL (0.0-1.0); Blood Urea Nitrogen 16 mg/dL (9-16); Calcium 9.7 mg/dL (8.4-10.2); Carbon Dioxide 28 mmol/L (22-29); Chloride 97 mmol/L (96-108); Creatinine Clr Calc Pharmacy 52.3; Estimated Glomerular Filt Rate > 60; Glucose Random 132 mg/dL (60-115); Potassium 4.3 mmol/L (3.3-5.1); Sodium 137 mmol/L (135-145); Total Protein 6.9 g/dL (6.5-8.0)
[2021-05-08 19:07] LABS: Basophils Percent Auto 0.4 % (0-2); Eosinophils Absolute Auto 0.1 X10*3/uL (0.0-0.4); Eosinophils Percent Auto 2.1 % (0-4); Hematocrit 45.9 % (37.0-47.0); Hemoglobin 15.5 g/dl (12.0-16.0); Imm Gran Abs Auto 0.03 X10*3/uL (0.00-0.03); Imm Gran Pct Auto 0.4 % (0.0-0.4); Lymphocytes Absolute Auto 1.5 X10*3/uL (1.2-4.9); Lymphocytes Percent Auto 22.5 % (20-40); Mean Corpuscular HGB Conc 33.8 g/dl (31.0-35.0); Mean Corpuscular Hemoglobin 29.8 pg (27.0-33.0); Mean Corpuscular Volume 88.3 fL (80.0-98.0); Mean Platelet Volume 10.6 fL (9.4-12.3); Monocytes Absolute Auto 0.6 X10*3/uL (0.1-1.2); Monocytes Percent Auto 8.2 % (2-11); Neutrophils Absolute Auto 4.4 x10*3/uL (2.0-8.3); Neutrophils Percent Auto 66.4 % (45-73); Platelet Count 327 X10*3/uL (160-400); Red Cell Distribution Width 11.7 % (11.0-16.0); White Blood Count 6.7 X10*3/uL (4.8-10.8)
[2021-05-08 20:28] VITALS: BP 130/70; PULSE 69; RESP 16; TEMP 37.1; O2SAT 97
[2021-05-08 20:31] LABS: Appearance Urine CLEAR; Color Urine YELLOW; Glucose Urine UA NEG (NEG); Leukocyte Esterase Urine 1+ (NEG); Nitrite Urine NEG (NEG); Specific Gravity - Urine 1.025 (1.005-1.025); UACC Culture Trigger YES; Urine Blood NEG (NEG); Urine Ketones 15 MG/DL (NEG); Urine Protein TRACE MG/DL (NEG-TRACE)
[2021-05-08 20:40] LABS: Bacteria Urine 1+ /LPF; Mucus Urine 1+ /LPF; RBC Urine 0 /HPF (0); Squamous Epithelial Cell Urine 1+ /LPF; Urine Talc Crystals TRACE /LPF
[2021-05-08 20:42] LABS: COVID-19 Test Negative (Negative)
[2021-05-09] VITALS (8 sets, daily range): BP systolic 117–155; BP diastolic 54–79; PULSE 52–100; RESP 14–16; TEMP 36.4–37; O2SAT 95–98
[2021-05-09] MEDS: LORazepam 1 MG TABLET PO (00:22)
--- NOTE | 2021-05-09 09:30 | PC.NURSE ---
pt is constantly getting oob and amb (i) gait steady in room and requesting to go to the bathroom. pt amb (i) gait steady with contact guard to bathroom and btb without any issues.
[2021-05-09] MEDS: Levothyroxine Sodium 88 MCG TABLET PO (10:22)
[2021-05-09] MEDS: lisinopriL 2.5 MG TABLET PO (10:22)
[2021-05-09] MEDS: HaloperidoL 0.5 MG TABLET PO ×2 (10:22→20:30)
[2021-05-09] MEDS: PARoxetine HCL 10 MG TABLET PO (10:22)
[2021-05-09 11:34] LABS: TSH reflex Free T4 0.95 uIU/mL (0.32-4.0)
--- NOTE | 2021-05-09 13:36 | MHC.CM.ED ---
Received case management consult from Alicia SALES. Patient came to the ER due to weakness, difficulty ambulating, and not eating. Patient was cleared by the care team of needing inpatient psych. Patient was able to ambulate around the ER without an issue. Patient's daughter & [facility] assisted living feel patient is having difficulty getting out of bed and ambulating. Physical therapy eval completed. No services indicated to be needed at this time. T/W spoke with patient's daughter, Tressa via telephone at [phone]. Patient was transferred to [facility] from [facility] in the beginning of March. Tressa hasn't seen her mother until 05/05. Tressa stated her mother lost a lot of weight since d/c from [facility]. Tressa concerned patient not eating at facility. Tressa concerned patient might have UTI. UA done. No UTI found. Tressa concerned about patient's thyroid level. TSH done and normal. Tressa feels patient is too lethargic from the Haldol. Psych consult will be ordered for medication assessment. T/W spoke with Crystal at [facility] via telephone at [phone].Patient had a difficult time transitioning to the facility when she first arrived. Family had not visited until 05/05. Family was also difficult to reach by phone. Building collection administrator had to email family to contact them. Dr Donovan decreased patient's Haldol at that time and requested Gladis Robertson, prison psychiatrist see patient. Unsure if patient was seen yet. Patient transferred to [facility] er on 05/08 d/t increased weakness, diff ambulating and not eating. Patient has gone on hunger strikes on and off since being admitted to the facility. But not this long. Anticipate patient will stay overnight. Will reconnect with Tressa and Crystal tomorrow. Continue to monitor for d/c needs.
--- NOTE | 2021-05-09 14:52 | PC.NURSE ---
received report from darian in regards to client.
--- NOTE | 2021-05-09 14:52 | PC.NURSE ---
rn to rn given to patt, pt moved to the pod. pt amb (i) gait steady.
--- NOTE | 2021-05-09 18:18 | PC.NURSE ---
calls out quite frequently, (about every 5-30 seconds) asking staff to fix sergio, fix blankets, get her in bed, calls out i need help when it is things patient is capable of doing.
[2021-05-09] MEDS: Donepezil HCl 5 MG TABLET PO (20:30)
[2021-05-09] MEDS: HaloperidoL 0.5 MG TABLET 2.5 MG PO (20:30)
[2021-05-10 00:41] VITALS: BP 151/75; PULSE 86; RESP 16; TEMP 36.5; O2SAT 93
[2021-05-10] MEDS: Acetaminophen 325 MG TABLET 650 MG PO (02:57)
[2021-05-10] MEDS: Levothyroxine Sodium 88 MCG TABLET PO (06:15)
--- NOTE | 2021-05-10 06:17 | PC.NURSE ---
Patient slept intermittently for 3 hours, in and out of room numerously requesting to have her tucked in her bed, medication compliant, behavior non concerning but confused requiring constant redirection, psych consult completed/confirmed by [facility] clinical secretary, d/c contingent on psych consult, VSS, will continue to monitor.
--- NOTE | 2021-05-10 07:19 | PC.NURSE ---
patient appears to remain asleep at present respirations are even and unlabored patient appears in no distress
[2021-05-10] MEDS: PARoxetine HCL 10 MG TABLET PO (08:37)
[2021-05-10] MEDS: lisinopriL 2.5 MG TABLET PO (08:37)
[2021-05-10] MEDS: HaloperidoL 0.5 MG TABLET PO ×2 (08:37→20:42)
--- NOTE | 2021-05-10 08:37 | MHC.CM.ED ---
Addendum entered by Jil Ghotra 05/10/21 13:26: Updated provided via telephone to patient's daughter/HCP, Tressa via telephone at [phone]. Original Note: Patient remains in ER pod. Psych consult ordered for medication assessment, specifically side effects of Haldol. Consult still pending. Continue to monitor for d/c needs.
[2021-05-10] MEDS: Ibuprofen 400 MG TABLET PO (12:02)
[2021-05-10 15:34] VITALS: BP 107/68; PULSE 97; RESP 18; TEMP 36.4; O2SAT 97
--- NOTE | 2021-05-10 17:40 | PC.NURSE ---
[facility] staff came in and asked questions about conduct behavior for the last few days, t/w reviewed, they emphasized that patient c/o severe abd pain prior to admit. t/w will pass on to staff to review with medical and i will followup and ask questions regarding stools since arrival
[2021-05-10] MEDS: HaloperidoL 0.5 MG TABLET 2.5 MG PO (20:42)
[2021-05-10] MEDS: Donepezil HCl 5 MG TABLET PO (20:42)
[2021-05-11] MEDS: Levothyroxine Sodium 88 MCG TABLET PO (06:03)
--- NOTE | 2021-05-11 06:45 | PC.NURSE ---
Patient slept intermittently for 3 hours, in and out of room numerously requesting to have her tucked in her bed, medication compliant, behavior non concerning but confused requiring constant redirection, psych consult not completed, [facility] called again and notified that consult needs to be done to plan patient's discharge, decorating supervisor notified, VSS, will continue to monitor.
[2021-05-11] MEDS: lisinopriL 2.5 MG TABLET PO (08:43)
[2021-05-11] MEDS: PARoxetine HCL 10 MG TABLET PO (08:44)
[2021-05-11] MEDS: HaloperidoL 0.5 MG TABLET PO ×2 (08:49→22:20)
--- NOTE | 2021-05-11 08:53 | PC.NURSE ---
pt medication compliant - medicated per provider order, pt easily redirected.
--- NOTE | 2021-05-11 09:27 | MHC.CM.ED ---
Addendum entered by Jil Ghotra 05/11/21 14:51: Patient's daughter, Barbara, made aware via telephone. Original Note: Patient remains in ER. Psych consult ordered but not done yet. Spoke with Yanet in [facility]. Dr Holloway or Marielos will see patient today. Continue to monitor for d/c needs.
[2021-05-11 14:00] VITALS: BP 148/77; PULSE 78; RESP 16; TEMP 36.6; O2SAT 96
--- NOTE | 2021-05-11 15:36 | PM.PSYCN ---
History of Present Illness Date of Service: 05/11/21 Chief Complaint: INC WEAK,DIFF AMB,NOT EATING PER ASSIST MERON STAFF Reason for Consult: med review HPI Narrative: per 05/08 ED note: Patient with? history of dementia came from assisted living place for not eating for last few days patient has been more weak and difficulty in ambulation no fever no shortness of breath no recent fall patient denies any complaints on interview with this press writer 05/11, pt found resting comfortably in her bed. pleasant, cooperative. denies any safety concerns, states she is eating fine both in the ED and at her living facility. bemoans that she is unable to live independently. no complaints or requests for MD otherwise. Past Psychiatric History: see previous psychiatry consult notes for Hx anxiety, takes paxil and valium. denies other. Medical Evaluation Reviewed: Yes [facility] Family History: [place] Social History: now in assisted living facility Substance History: [place] Diagnostics Vital Signs (24Hr): BMI result Body Mass Index 24.9 Labs Results: 05/08/21 18:38 05/08/21 18:37 Mental Status Exam Mental Status Exam Narrative: appropriately dressed and groomed, lying in bed in BH pod. cooperative, no PMA/PMR. speech nml in rate, amount, loudness, tone, latency. thoughts linear and logical. affect constricted, normo-intense, min-labbile. mood good. denies SI/HI/AVH. Medications Medications Current Medications Acetaminophen (Acetaminophen 325 Mg Tablet) 650 mg PO Q6H PRN PRN Reason: Pain Last Admin: 05/10/21 02:57 Dose: 650 mg Documented by: Donepezil HCl (Donepezil Hcl 5 Mg Tablet) 5 mg PO BEDTIME [facility] Last Admin: 05/10/21 20:42 Dose: 5 mg Documented by: Haloperidol (Haloperidol 0.5 Mg Tablet) 0.5 mg PO BID [facility] Last Admin: 05/11/21 08:49 Dose: 0.5 mg Documented by: Haloperidol (Haloperidol 0.5 Mg Tablet) 2.5 mg PO BEDTIME [facility] Last Admin: 05/10/21 20:42 Dose: 2.5 mg Documented by: Levothyroxine Sodium (Levothyroxine Sodium 88 Mcg Tablet) 88 mcg PO DAILY@0600 [facility] Last Admin: 05/11/21 06:03 Dose: 88 mcg Documented by: Lisinopril (Lisinopril 2.5 Mg Tablet) 2.5 mg PO DAILY [facility]; Protocol Last Admin: 05/11/21 08:43 Dose: 2.5 mg Documented by: Paroxetine HCl (Paroxetine Hcl 10 Mg Tablet) 10 mg PO DAILY [facility] Last Admin: 05/11/21 08:44 Dose: 10 mg Documented by: Allergies Allergies Allergy/AdvReac Type Severity Reaction Status Date / Time Sulfa (Sulfonamide Allergy Unknown Unknown Verified 11/24/20 00:44 Antibiotics) Assessment & Plan Assessment & Plan (1) Depression: Status: Acute Code(s): F32.A - Depression, unspecified (2) Dementia: Status: Acute Code(s): F03.90 - Unspecified dementia without behavioral disturbance Plan i would recommend adding mirtazapine 7.5 mg PO QHS to pt's regimen. this will aid with sleep, depression, and appetite. if FTT continues, i would swap out haldol in favor of low-dose olanzapine as a neuroleptic with the added benefit of appetite stimulation. otherwise continue current medications. I spent ___50___ minutes with the patient and/or on the patient floor today, greater than?50% of which was spent counseling/coordinating care.
--- NOTE | 2021-05-11 16:02 | PC.NURSE ---
pt in and out of room requiring constant redirection - behaviour consistent w previous documentation. pt redirecting and sleeping for short periods of time.
--- NOTE | 2021-05-11 17:31 | PC.NURSE ---
Faith Raza, Public Address Servicer at [facility], called for PT update. This RN informed her that the PT was recently seen by the psychiatrist but there was no new disposition at this time. If we need to contact her at any time we can call [phone].
[2021-05-11] MEDS: HaloperidoL 0.5 MG TABLET 2.5 MG PO (22:19)
[2021-05-11] MEDS: Donepezil HCl 5 MG TABLET PO (22:20)
[2021-05-12 04:19] VITALS: BP 137/81; PULSE 103; RESP 15; TEMP 36.7; O2SAT 97
[2021-05-12] MEDS: Levothyroxine Sodium 88 MCG TABLET PO (05:00)
[2021-05-12] MEDS: Acetaminophen 325 MG TABLET 650 MG PO (05:00)
--- NOTE | 2021-05-12 06:13 | PC.NURSE ---
Patient slept intermittently, in and out of room numerously requesting to have her tucked in her bed, medication compliant, behavior non concerning but confused requiring constant redirection, psych consult completed, med recommendation not ordered yet, VSS, will continue to monitor.
--- NOTE | 2021-05-12 07:12 | PC.NURSE ---
patient appears to remain at rest at present respirations are even and unlabored patient appears in no distress
[2021-05-12 08:01] VITALS: BP 164/86; PULSE 93; RESP 16; TEMP 37; O2SAT 97
[2021-05-12] MEDS: lisinopriL 2.5 MG TABLET PO (08:21)
[2021-05-12] MEDS: HaloperidoL 0.5 MG TABLET PO (08:21)
[2021-05-12] MEDS: PARoxetine HCL 10 MG TABLET PO (08:21)
--- NOTE | 2021-05-12 08:33 | MHC.CM.ED ---
Addendum entered by Jil Ghotra 05/12/21 08:53: Left voicemail for patient's daughter/HCP, Courtney, via telephone at [phone]. Requested return telephone call. Original Note: Patient remains in ER pod. Psych consult done last night. T/W attempted to reach VICKY Rojas at [facility]. Requested return telephone call to see if patient can return to facility today.
--- NOTE | 2021-05-12 09:37 | MHC.CM.ED ---
Received a return telephone call from Courtney. Courtney's sister is coming to the hospital from [place] and will be here around 1115. She will be able to transport patient to her assisted living facility. Continue to monitor for d/c needs.
--- NOTE | 2021-05-12 12:06 | MHC.CM.ED ---
Spoke with VICKY Mena at [facility]. Faith is concerned that patient won't have her meds today. Prescription for Remeron sent to [facility] by Julia SALES. Per Faith, patient can leave at 1230pm. Chloe PERRY aware. Julia SALES aware. Family can transport patient back to Assisted living facility.
== END 2021-05-12 12:37 | disposition skilled nursing facility (03) ==
PROVIDERS: Physician Assistant; Emergency Provider Internal Medicine; PCP Internal Medicine
DX: F03.90 Unspecified dementia, unspecified severity, without behavioral disturbance, psychotic disturbance, mood disturbance, and anxiety (principal); F41.9 Anxiety disorder, unspecified; R62.7 Adult failure to thrive; F32.A Depression, unspecified; R53.1 Weakness; Z20.822 Contact with and (suspected) exposure to COVID-19; Z79.899 Other long term (current) drug therapy
CPT/HCPCS: 36415; 80053; 81001; 84443; 85025; 87086; 87635; 97161; 99285